=== PATIENT | male | born 1950 | race Caucasian/White ===

== ENCOUNTER 2024-06-10 01:13 | Emergency (ER) | payer MEDICARE, SELFPAY ==
--- NOTE | ~2024-06-10 | XR_ITS ---
CLINICAL HISTORY: pain, fall 3 view right shoulder Comparison: None Findings: Right lateral clavicle appears old. No acute displaced fracture of the right shoulder. No dislocation of the right glenohumeral joint. Small Hill-Sachs deformity of the humerus and glenoid irregularity appear old. Moderate effusion present. 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 Mild osteoarthritis of the right glenohumeral joint. Emphysematous change of the imaged right lung. IMPRESSION: 1. No acute fracture or dislocation. 2. 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 3. Mild osteoarthritis of the right glenohumeral joint. 4. Small old Hill-Sachs deformity. This document has been electronically signed by: Rito Banks MD on 06/10/2024 02:16:41
--- NOTE | ~2024-06-10 | XR_ITS ---
CLINICAL HISTORY: pain, fall 2 view right humerus Comparison: None Findings: Small old Hill-Sachs deformity of the proximal humerus with mild degenerative change of the right shoulder. No dislocation of the imaged right shoulder or right elbow. No acute fracture of the imaged humerus. No significant arthritic change. No radiopaque foreign body. IMPRESSION: 1. No acute fracture of the right humerus 2. Mild degenerative change of the right shoulder. This document has been electronically signed by: Rito Banks MD on 06/10/2024 02:16:36
[2024-06-10 01:41] VITALS: BP 149/59; PULSE 77; RESP 18; TEMP 36.4; O2SAT 94; BMI 28.0
--- NOTE | 2024-06-10 01:43 | ED_ITS ---
HPI - Extremity Injury (Upper) General Chief Complaint: Extremity Injury, Upper Stated Complaint: skipped on ice R arm pain Time Seen by Provider: 06/10/24 02:53 Source: patient and family Mode of arrival: ambulatory Limitations: no limitations History of Present Illness ED Provider: Dr. Radha Jo HPI narrative: patient comes to the emergency room complaining of left shoulder pain. Patient states that he slipped and fallen ice. Patient denies head strike, no loss of consciousness, not on blood thinners. Patient denies any neck pain. Patient states that he has no pain in his hand or available. Patient states that he has trouble lifting his arm up. Related Data Previous Rx's ?Medication ?Instructions ?Recorded tramadol 50 mg tablet 50 mg PO BID PRN pain #7 tabs 06/10/24 Allergies Allergy/AdvReac Type Severity Reaction Status Date / Time No Known Allergies Allergy Verified 06/10/24 01:45 Review of Systems Review of Systems: Constitutional : No Fever, No Chills ENT/Mouth : No Ear Pain, No Hoarseness, No sore throat Eyes: No Eye Pain, No Swelling, No Redness, No Foreign Body Cardiovascular : No Chest Pain, No SOB Respiratory : No Cough, No Dyspnea Gastrointestinal : No Nausea, No Vomiting, No Diarrhea, No abdominal Pain Genitourinary : No Dysuria, No Hematuria Musculoskeletal : positive joint pain On the right shoulder, No Myalgias, No Joint Swelling Skin : No Skin lacerations, No rash Neuro : No Weakness, No Numbness, No Loss of Consciousness, No Dizziness, No Headache All other systems reviewed and are negative FORMERLY [facility], [facility]–1983 Past Medical History Attestation statement: The following information was validated with the patient. Source: old records reviewed Medical History Diabetes Social History Social History Patient Tobacco Use Status: Never used Tobacco Physical Exam Vital Signs: Vital Signs: Last Vital Signs Temp 97.5 F 06/10/24 01:41 Pulse 77 06/10/24 01:41 Resp 18 06/10/24 01:41 BP 149/59 H 06/10/24 01:41 Pulse Ox 94 06/10/24 01:41 O2 Del Method Room Air 06/10/24 01:41 BMI result Body Mass Index 28.0 Appearance: Alert. Oriented X3. No acute distress. Eyes: Pupils equal, round and reactive to light. ENT: Pharynx normal. atraumatic Neck: Normal inspection. Neck supple. no midline ttp CVS: Normal heart rate and rhythm. Pulses normal. Respiratory: No respiratory distress. Breath sounds normal. Abdomen: Soft and nontender. Skin: Skin warm and dry. Normal skin color. Normal skin turgor. Extremities: No lower extremity edema. R upper humerus ttp cannot raise arm no elbow/wrist/hand pain, distal NV intact Neuro: Oriented X 3. No motor deficit. No sensory deficit. CN2-12 intact Const: Other: Appearance: Alert. Oriented X3. No acute distress. Eyes: Pupils equal, round and reactive to light. ENT: Pharynx normal. Neck: Normal inspection. Neck supple. No lymph nodes noted. No crepitus CVS: Normal heart rate and rhythm. Pulses normal. Normal S1 and S2 Respiratory: No respiratory distress. Breath sounds normal. No Wheezing. No rales Abdomen: Soft and nontender. No rigidity. No distention. Skin: Skin warm and dry. Normal skin color. Normal skin turgor. Extremities: No lower extremity edema. No Lacerations. No Rash. Patient has good radial pulses. Patient is able to flex and extend all fingers, able to flex and extend both elbows. However, on the right side, patient can not abduct the right arm due to pain past 30 degrees. Patient next to grab his right hand with his left hand in pull upwards. Neuro: Oriented X 3. No motor deficit. No sensory deficit. Moving all extremities. No slurred speech. CN 2 through 12 grossly intact Psych: calm, cooperative, normal affect Course Course Course Narrative: 73 yo male with PMH of DM not on blood thinners here with c/o slip and fall out of car - landed on R shoulder no headstrike or LOC. He is R hand dominant. He has pain from humerus to R shoulder. No headstrike or LOC - at this time xrays of R shoulder/humerus. NV intact. this is a RAPID medical screening exam the rest of the history and physical exam is to be done by the main provider. Medical Decision Making Medical Decision Making [facility] Narrative: My interpretation of x-rays: No obvious fracture. However, I discussed with the patient that it is very likely that patient has a rotator cuff injury. Patient may need physical therapy and or MRI. Patient instructed to follow-up with his primary care physician in Orthopedics. At home patient takes ibuprofen. This time patient was given a small prescription for tramadol patient's arm was placed on a sling Independent Interpretation I performed an independent interpretation of an: Plain X-Ray Radiology Impression Discussion of test interpretation with radiology: I have reviewed the radiologist's reading. Radiologist Impression: Right lateral clavicle appears old. No acute displaced fracture of the right shoulder. No dislocation of the right glenohumeral joint. Small Hill-Sachs deformity of the humerus and glenoid irregularity appear old. Moderate effusion present. 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 Mild osteoarthritis of the right glenohumeral joint. Emphysematous change of the imaged right lung. IMPRESSION: 1. No acute fracture or dislocation. 2. 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 3. Mild osteoarthritis of the right glenohumeral joint. 4. Small old Hill-Sachs deformity. Discharge Plan Discharge Clinical Impression: Rotator cuff injury Patient Disposition: Home, Self-Care Instructions: Rotator Cuff Injury (ED) Additional Instructions: Please follow-up with your primary care physician tomorrow. If you have any worsening or new symptoms, please return to the emergency room or call 911 Prescriptions: New tramadol 50 mg tablet 50 mg PO BID PRN (Reason: pain) Qty: 7 0RF
[2024-06-10 03:32] VITALS: BP 149/59; PULSE 77; RESP 18; TEMP 36.4; O2SAT 94
== END 2024-06-10 03:33 | disposition home or self-care (01) ==
LOC: HO.ED 03:27
PROVIDERS: Emergency Provider Emergency Medicine
DX: S46.001A Unspecified injury of muscle(s) and tendon(s) of the rotator cuff of right shoulder, initial encounter (principal); M25.511 Pain in right shoulder; W00.0XXA Fall on same level due to ice and snow, initial encounter; Y93.9 Activity, unspecified; Y92.9 Unspecified place or not applicable; Y99.8 Other external cause status
CPT/HCPCS: 73030; 73060; 99282; 99283

== ENCOUNTER → 2024-06-10 01:41 | Outpatient (BNV) | payer MEDICARE, SELFPAY | PROVIDERS: Emergency Provider Emergency Medicine; Visit Provider Radiology Neuroradiology | DX: M19.011 Primary osteoarthritis, right shoulder (principal) | CPT/HCPCS: 73030; 73060 ==

== ENCOUNTER 2024-07-05 09:13 | Outpatient (REF) | payer MEDICARE, SELFPAY | END 2024-07-05 09:14 | disposition home or self-care (01) | LOC: HO.HOSX 09:13 | DX: Z13.89 Encounter for screening for other disorder (principal) ==

== ENCOUNTER 2024-07-06 08:30 | Outpatient (REF) | payer MEDICARE, SELFPAY ==
--- NOTE | ~2024-07-06 | XR_ITS ---
EXAMINATION: XR SHOULDER, RIGHT CLINICAL INFORMATION: M25.511 - Pain in right shoulder COMPARISON: June 10, 2024. TECHNIQUE: AP external rotation, Grashey, scapular Y, and axillary views of the right shoulder. FINDINGS: Subchondral cyst formation and sclerosis involving the greater tuberosity of the right humerus with the small volume loss. There is articular surface sclerosis in the acromioclavicular joint. There is an old traumatic deformity in the mid diaphysis of the right clavicle. Multilevel thoracic spondylosis. XR/XR shoulder RT min 2V IMPRESSION: Degenerative changes without acute fracture or dislocation. Probable Hill-Sachs deformity, right humerus.. Electronically signed by: Piyush Hansen MD 07/09/2024 10:32 AM EDT
== END 2024-07-06 08:31 | disposition home or self-care (01) ==
LOC: HO.HOSX 08:30
DX: M25.511 Pain in right shoulder (principal); M24.811 Other specific joint derangements of right shoulder, not elsewhere classified
CPT/HCPCS: 73030; 99202

== ENCOUNTER 2024-07-06 13:13 | Outpatient (AMB) | payer MEDICARE, SELFPAY ==
--- NOTE | 2024-07-06 13:16 | MHC.OFFVIS ---
Vital Signs 07/06/24 13:28 Height 5 ft 6 in Weight 173 lb BMI 27.9 Intake Visit Reasons: [employer]- ED f/u Right RTC injury DOI 06/09/24 Intake Note: Severo is a 73 year old right hand dominant male who presents today as a new patient for an emergency department follow up for his right shoulder injury s/p fall DOI: 06/10/24. Per ED note patient slipped and fell out of his car, landing on right shoulder. Patient reports he was given a sling at the ED but he is not using this anymore. Patient is taking Ibuprofen and Tramadol with relief. Denies numbness or tingling. Denies prior injuries or surgeries to the right shoulder. Allergies No Known Allergies Allergy (Verified 07/06/24 13:29) HPI HPI [employer]- ED f/u Right RTC injury DOI 06/09/24: Details: Severo is a 73 year old right hand dominant male who presents today as a new patient for an emergency department follow up for his right shoulder injury s/p fall DOI: 06/10/24. Per ED note patient slipped and fell out of his car, landing on right shoulder. Patient reports he was given a sling at the ED but he is not using this anymore. Patient is taking Ibuprofen and Tramadol with relief. Denies numbness or tingling. Denies prior injuries or surgeries to the right shoulder. [facility] Medical History (Updated 07/06/24 @ 13:53 by SOLIS Zamarripa) Diabetes Social History Patient Tobacco Use Status: Never used Tobacco Review of Systems Const All systems reviewed & are unremarkable except as noted in HPI and below Physical Exam Vital Signs: BMI result Body Mass Index 27.9 Extrem Other: Patient's right shoulder normal to inspection No erythema, ecchymosis, edema noted No lacerations, abrasions, open areas No evidence of infection Patient reports no tenderness to palpation of the right shoulder Patient was able to forward flex the right shoulder to approximately 120 degrees, experiences pain at this range of motion Patient is able to externally rotate the bilateral shoulders to approximately 60 degrees without difficulty Positive empty can on the right Positive belly press on the right Distal sensation intact Capillary refill brisk Results Reviewed Results Reviewed: X-rays obtained in the office today and independently reviewed by me, Fabricio Gamboa PA-C, demonstrate no fracture or acute bony abnormality of the right shoulder, however an old Hill-Sachs deformity and old deformity of the glenoid are noted. Assessment & Plan Assessment & Plan (1) Internal derangement of right shoulder: Code(s): M24.811 - Other specific joint derangements of right shoulder, not elsewhere classified Category: Medical Plan 1. Internal derangement of right shoulder Patient is educated about this condition Patient was educated about the typical recovery course At this time, patient was referred for physical therapy for range of motion and strengthening of the right shoulder in the setting of internal derangement with possible rotator cuff injury Patient was amenable to this plan Patient will follow-up in 6-8 weeks if he is still experiencing pain after physical therapy, sooner with any acute concerns Orders: Orders PT Evaluation and Treatment Today M24.811 - Other specific joint derangements of right shoulder, not elsewhere classified XR shoulder RT min 2V Today M25.511 - Pain in right shoulder Coding Level of Care Code New Pt Level 3 (48576) Diagnoses Internal derangement of right shoulder M24.811
[2024-07-06 13:28] VITALS: BMI 27.9
== END 2024-07-06 14:00 | disposition home or self-care (01) ==
LOC: HO.HOS 13:13
PROVIDERS: PCP Hospitalist
DX: M24.811 Other specific joint derangements of right shoulder, not elsewhere classified (principal)
CPT/HCPCS: 99203

== ENCOUNTER → 2024-07-06 13:16 | Outpatient (BNV) | payer MEDICARE, SELFPAY | PROVIDERS: Visit Provider Radiology Diagnostic Radiology | DX: M19.011 Primary osteoarthritis, right shoulder (principal) | CPT/HCPCS: 73030 ==